=== PATIENT | male | born 2000 | race Hispanic/Latino ===

== ENCOUNTER 2020-05-23 14:15 | Emergency (ER) | payer OTHER ==
[~2020-05-23] VITALS: Ht 170.2 cm; Wt 71.7 kg
== END 2020-05-23 15:31 | disposition home or self-care (01) ==
LOC: ER 14:41
DX: S93.401A Sprain of unspecified ligament of right ankle, initial encounter (principal); X50.1XXA Overexertion from prolonged static or awkward postures, initial encounter; Y93.01 Activity, walking, marching and hiking; Y99.0 Civilian activity done for income or pay; F17.210 Nicotine dependence, cigarettes, uncomplicated
CPT/HCPCS: 99283

== ENCOUNTER 2021-08-28 19:26 | Emergency (ER) | payer OTHER ==
[~2021-08-28] VITALS: Ht 177.8 cm; Wt 97.5 kg
[2021-08-28] MEDS ORDERED: LIDOCAINE HCL 1% LOCAL INJ 20 ML VIAL INJ STA (19:49)
[2021-08-28] MEDS ORDERED: CEPHALEXIN500 MG PO (20:46)
[2021-08-28] MEDS ORDERED: ACETAMINOPHEN-1 EAC4 PO (20:46)
== END 2021-08-28 21:30 | disposition home or self-care (01) ==
LOC: ER 19:37
DX: S67.192A Crushing injury of right middle finger, initial encounter (principal); S67.194A Crushing injury of right ring finger, initial encounter; W23.1XXA Caught, crushed, jammed, or pinched between stationary objects, initial encounter; Y92.89 Other specified places as the place of occurrence of the external cause; F17.210 Nicotine dependence, cigarettes, uncomplicated
CPT/HCPCS: 99283

== ENCOUNTER 2024-08-08 21:04 | Emergency (ER) | payer BC, OTHER ==
[~2024-08-08] VITALS: Ht 177.8 cm; Wt 106.6 kg
[~2024-08-08 21:04] MED LIST: ACETAMINOPHEN-1 EAC4 PO; CEPHALEXIN500 MG PO
[2024-08-08 21:22] VITALS: TEMP 98.4
[2024-08-08 22:15] VITALS: PULSE 87; RESP 18
[2024-08-08 23:30] VITALS: BP 124/61; PULSE 90; RESP 17; TEMP 98; O2SAT 100
== END 2024-08-08 23:27 | disposition home or self-care (01) ==
LOC: ER 21:28
DX: R06.02 Shortness of breath (principal); R07.89 Other chest pain; R00.2 Palpitations; R01.1 Cardiac murmur, unspecified; F17.210 Nicotine dependence, cigarettes, uncomplicated
CPT/HCPCS: 71046; 93005; 99283

== ENCOUNTER 2025-02-17 14:15 | Emergency (ER) | payer SELFPAY ==
[~2025-02-17] VITALS: Ht 177.8 cm; Wt 108.5 kg
[2025-02-17 14:24] VITALS: TEMP 99.3
[2025-02-17] MEDS ORDERED: CIPRO500 MG PO (15:08)
[2025-02-17 15:10] VITALS: PULSE 90; RESP 16; O2SAT 98
== END 2025-02-17 15:12 | disposition home or self-care (01) ==
LOC: FSED 14:28
DX: S91.131A Puncture wound without foreign body of right great toe without damage to nail, initial encounter (principal); W45.0XXA Nail entering through skin, initial encounter; Y93.01 Activity, walking, marching and hiking; Y92.89 Other specified places as the place of occurrence of the external cause; R01.1 Cardiac murmur, unspecified
CPT/HCPCS: 99283